=== PATIENT | female | born 1970 | race Caucasian/White ===

== ENCOUNTER 2021-07-26 11:29 | Emergency (ER) | payer OTHER ==
[~2021-07-26] VITALS: Ht 160 cm; Wt 56.7 kg
[2021-07-26] MEDS ORDERED: BACTRIM DS TAB1 EAC1 PO (11:46)
[2021-07-26] MEDS ORDERED: APAP W/CODEINE1 TA2 PO (11:46)
[2021-07-26] MEDS ORDERED: CEPHALEXIN500 MG PO (11:46)
[2021-07-26 11:54] VITALS: BP 148/82
== END 2021-07-26 11:55 | disposition home or self-care (01) ==
LOC: M.ERS 11:29
DX: L02.03 Carbuncle of face (principal)